=== PATIENT | male | born 1985 | race Caucasian/White ===

== ENCOUNTER → 2017-01-20 | Outpatient (CLI) | payer MEDICARE, OTHER ==
[2017-01-20 12:51] LABS: CH 32.8; HCT 43.7 % (39.0-53.0); HDW 2.78; HGB 14.5 gm/dL (13.0-17.5); MCH 32.1 pg (25.0-35.0); MCHC 33.1 g/dL (31.0-37.0); Mean Platelet Volume 8.4; RBC 4.51 m/uL (4.30-5.90); RDW 13.4 % (11.5-15.5); WBC 6.7 k/uL (3.8-10.6)
[2017-01-20 12:59] LABS: ALT 63 U/L (21-72); AST 45 U/L (17-59); Alkaline Phosphatase 77 U/L (38-126); Anion Gap 8 mmol/L; Blood Urea Nitrogen 10 mg/dL (9-20); Calcium 9.6 mg/dL (8.4-10.2); Carbon Dioxide 32 mmol/L (22-30); Chloride 102 mmol/L (98-107); Cholesterol 243 mg/dL (<200); Glucose 88 mg/dL (74-99); HDL Cholesterol 57 mg/dL (40-60); Non-African American GFR(MDRD) >60 (>60 ml/min/1.73 sqM); Potassium 4.5 mmol/L (3.5-5.1); Sodium 142 mmol/L (137-145); Triglycerides 126 mg/dL (<150)
== END ==
LOC: LABWHC1 12:16
PROVIDERS: ATTEND Internal Medicine Critical Care Medicine
DX: L50.9 Urticaria, unspecified (principal)
CPT/HCPCS: 36415; 80053; 80061; 82785; 85027

== ENCOUNTER → 2017-11-23 | Outpatient (CLI) | payer MEDICARE, OTHER ==
[2017-11-23 11:45] LABS: Basophils # (A) 0.1 k/uL (0-0.2); Basophils % (A) 1 %; Eosinophils # (A) 0.9 k/uL (0-0.7); Eosinophils % (A) 11 %; HCT 43.9 % (39.0-53.0); HGB 14.8 gm/dL (13.0-17.5); Lymphocytes # (A) 1.8 k/uL (1.0-4.8); Lymphocytes % (A) 22 %; MCH 31.8 pg (25.0-35.0); MCHC 33.8 g/dL (31.0-37.0); MCV 94.2 fL (80.0-100.0); Mean Platelet Volume 7.8; Monocytes # (A) 0.4 k/uL (0-1.0); Monocytes % (A) 5 %; Neutrophils # (A) 5.1 k/uL (1.3-7.7); Neutrophils % (A) 61 %; Platelet Count 232 k/uL (150-450); RBC 4.66 m/uL (4.30-5.90); RDW 13.5 % (11.5-15.5); WBC 8.3 k/uL (3.8-10.6)
[2017-11-23 12:10] LABS: ALT 77 U/L (21-72); AST 58 U/L (17-59); Albumin 4.6 g/dL (3.5-5.0); Alkaline Phosphatase 59 U/L (38-126); Anion Gap 10 mmol/L; Blood Urea Nitrogen 13 mg/dL (9-20); Calcium 9.8 mg/dL (8.4-10.2); Carbon Dioxide 30 mmol/L (22-30); Chloride 102 mmol/L (98-107); Glucose 101 mg/dL (74-99); Potassium 4.4 mmol/L (3.5-5.1); Sodium 142 mmol/L (137-145); Total Bilirubin 0.6 mg/dL (0.2-1.3); Total Protein 7.9 g/dL (6.3-8.2)
[2017-11-23 13:46] LABS: Erythrocyte Sedimentation Rate 13 mm/hr (0-15)
[2017-11-23 17:03] LABS: Alternaria alternata IgE 8.48 kU/L; Birch IgE <0.10 kU/L; Clam IgE <0.10 kU/L; Cockroach IgE 1.36 kU/L; Codfish IgE <0.10 kU/L; Dermato. farinae IgE 9.92 kU/L; Dog Dander IgE 6.57 kU/L; Egg White IgE 0.13 kU/L; Elm IgE <0.10 kU/L; Maple (Box Elder) IgE <0.10 kU/L; Oak IgE <0.10 kU/L; Peanut IgE 0.11 kU/L; Red Top (Bentgrass) IgE <0.10 kU/L; Scallop IgE <0.10 kU/L; Shrimp IgE <0.10 kU/L; Soybean IgE 0.28 kU/L; Walnut IgE (Food) <0.10 kU/L
== END | disposition home or self-care (01) ==
LOC: LABWHC1 11:11
PROVIDERS: ATTEND Internal Medicine Critical Care Medicine
DX: L50.8 Other urticaria (principal)
CPT/HCPCS: 36415; 80053; 82785; 85025; 85652; 86003; 99214

== ENCOUNTER → 2018-04-28 | Outpatient (CLI) | payer MEDICARE ==
[2018-04-28 12:24] LABS: Basophils # (A) 0.1 k/uL (0-0.2); Basophils % (A) 1 %; Eosinophils # (A) 0.9 k/uL (0-0.7); Eosinophils % (A) 11 %; HCT 39.9 % (39.0-53.0); HGB 13.1 gm/dL (13.0-17.5); Lymphocytes # (A) 1.5 k/uL (1.0-4.8); Lymphocytes % (A) 19 %; MCH 30.7 pg (25.0-35.0); MCHC 32.9 g/dL (31.0-37.0); MCV 93.2 fL (80.0-100.0); Mean Platelet Volume 7.5; Monocytes # (A) 0.4 k/uL (0-1.0); Monocytes % (A) 6 %; Neutrophils # (A) 4.7 k/uL (1.3-7.7); Neutrophils % (A) 61 %; Platelet Count 297 k/uL (150-450); RBC 4.29 m/uL (4.30-5.90); RDW 13.6 % (11.5-15.5); WBC 7.7 k/uL (3.8-10.6)
[2018-04-28 12:27] LABS: ALT 51 U/L (21-72); AST 39 U/L (17-59)
== END | disposition home or self-care (01) ==
LOC: LABWHC1 11:51
PROVIDERS: ATTEND Physician Assistant Medical
DX: L60.9 Nail disorder, unspecified (principal); L30.1 Dyshidrosis [pompholyx]
CPT/HCPCS: 36415; 84450; 84460; 85025; 87103

== ENCOUNTER → 2018-06-15 | Outpatient (CLI) | payer MEDICARE, OTHER ==
[2018-06-15 11:31] LABS: ALT 65 U/L (21-72); AST 44 U/L (17-59)
[2018-06-15 11:32] LABS: Basophils # (A) 0.1 k/uL (0-0.2); Basophils % (A) 1 %; Eosinophils # (A) 0.4 k/uL (0-0.7); Eosinophils % (A) 5 %; HCT 40.8 % (39.0-53.0); HGB 13.3 gm/dL (13.0-17.5); Lymphocytes # (A) 1.8 k/uL (1.0-4.8); Lymphocytes % (A) 23 %; MCH 30.9 pg (25.0-35.0); MCHC 32.7 g/dL (31.0-37.0); MCV 94.5 fL (80.0-100.0); Mean Platelet Volume 7.3; Monocytes # (A) 0.4 k/uL (0-1.0); Monocytes % (A) 5 %; Neutrophils # (A) 5.2 k/uL (1.3-7.7); Neutrophils % (A) 66 %; Platelet Count 246 k/uL (150-450); RBC 4.32 m/uL (4.30-5.90); WBC 7.8 k/uL (3.8-10.6)
== END | disposition home or self-care (01) ==
LOC: LABWHC1 11:46
PROVIDERS: ATTEND Physician Assistant Medical
DX: B35.1 Tinea unguium (principal)
CPT/HCPCS: 36415; 84450; 84460; 85025

== ENCOUNTER → 2018-06-15 | Outpatient (CLI) | payer MEDICARE, OTHER | LOC: LABWHC1 10:27 → EDSTATUS 10:53 | PROVIDERS: ATTEND Physician Assistant Medical | DX: Z53.9 Procedure and treatment not carried out, unspecified reason (principal) ==

== ENCOUNTER 2019-07-05 17:03 | Emergency (ER) | payer MEDICARE, OTHER ==
[2019-07-05] MEDS ORDERED: methylPREDNISolone SOD SUCCI 125 MG/2 ML VIAL IM ONE (19:21)
--- NOTE | 2019-07-05 19:30 | ED ---
Extremity Problem HPI - General Chief complaint: Extremity Problem,Nontraumatic Stated complaint: BLISTERS ON HANDS AND FEET Time Seen by Provider: 07/05/19 18:54 Source: family, RN notes reviewed, old records reviewed Mode of arrival: ambulatory Limitations: no limitations - History of Present Illness Initial comments: This is a 34-year-old male with history of both employed. He is normally treated by vest busheler at home. His office. He presents today with complaints of exacerbation over his hands. He reports he had a few blisters on his feet. They're concerned for secondary infection on his feet. Patient states that he's had a history of mental infection over his feet and he was on oral antifungals for many months. He stopped this a few months ago. Patient reports that his both employed seems to be exacerbated from being sweaty. He did have his hands and gloves couple days ago. Patient is here with his mother who is his legal guardian. - Related Data Home Medications Medication Instructions Recorded Confirmed Omalizumab [Xolair] 300 mg SQ Q28D 06/22/17 07/05/19 Previous Rx's Medication Instructions Recorded Clotrimazole Cream [Lotrimin Cream] 1 applic TOPICAL BID #60 gm 07/05/19 methylPREDNISolone Dose Pack 4 mg PO DIRECTED #21 package 07/05/19 [Medrol Dose Pack] Allergies Allergy/AdvReac Type Severity Reaction Status Date / Time cephalexin monohydrate Allergy Rash/Hives Verified 07/05/19 19:17 [From Keflex] broccoli AdvReac WAS Verified 07/05/19 19:17 POSITIVE TEST wheat AdvReac BLISTERING, Verified 07/05/19 19:17 POSITIVE ON ALLERGY TEST Review of Systems ROS Statement: Those systems with pertinent positive or pertinent negative responses have been documented in the HPI. ROS Other: All systems not noted in ROS Statement are negative. Past Medical History Past Medical History: Asthma, GERD/Reflux Additional Past Medical History / Comment(s): bullous pemphigoid, learning disabled-MENTAL CAPACITY OF TEENAGER. UNDERSTANDS MOST THINGS. 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 ECEZMA AROUND NECK. BLISTERS ON FEET 03/23/18. History of Any Multi-Drug Resistant Organisms: None Reported Date of last positivie culture/infection: 05/28/18 MDRO Source:: BACK Past Surgical History: Adenoidectomy Past Anesthesia/Blood Transfusion Reactions: Postoperative Nausea & Vomiting (PONV) Past Psychological History: No Psychological Hx Reported Smoking Status: Never smoker Past Alcohol Use History: None Reported Past Drug Use History: None Reported - Past Family History Mother History Unknown: Yes Family Medical History: No Reported History Additional Family Medical History / Comment(s): Hypotension and tachycardia General Exam - General Exam Comments Initial Comments: Pleasant 34-year-old male. No distress. Limitations: no limitations General appearance: alert, in no apparent distress Head exam: Present: atraumatic, normocephalic, normal inspection Eye exam: Present: normal appearance, PERRL, EOMI. Absent: scleral icterus, conjunctival injection, periorbital swelling ENT exam: Present: normal exam, mucous membranes moist Neck exam: Present: normal inspection. Absent: tenderness, meningismus, lymphadenopathy Respiratory exam: Present: normal lung sounds bilaterally. Absent: respiratory distress, wheezes, rales, rhonchi, stridor Cardiovascular Exam: Present: regular rate GI/Abdominal exam: Present: soft, normal bowel sounds. Absent: distended, tenderness, guarding, rebound, rigid Extremities exam: Present: normal inspection, full ROM, normal capillary refill. Absent: tenderness, pedal edema, joint swelling, calf tenderness Back exam: Present: normal inspection Neurological exam: Present: alert, oriented X3, CN II-XII intact Psychiatric exam: Present: normal affect, normal mood Skin exam: Present: warm, dry, intact, normal color, rash (Evidence of bullous- like lesions over his hands. One area has popped. Patient has evidence of popped sores over the bottom of his feet. There is evidence of scaling skin concern for possible topical fungal infection.) Course Vital Signs 07/05/19 17:43 Temperature 98.8 F Pulse Rate 77 Respiratory 16 Rate Blood Pressure 113/77 O2 Sat by Pulse 100 Oximetry Medical Decision Making - Medical Decision Making 34-year-old male presents with a history of ulcer medically. Acute exacerbation over his hands for the past few days after wearing gloves. Patient does have 3 significant bullous-like lesions. He has not had one as he does report some time. No steroids in the past month. Patient reports as having an appointment with his vest busheler on July 13. At this time Patient will be given IM Solu-Medrol, started on oral steroids. Discussed to use a topical antifungal medication and a lot of the Patient on oral antifungals until he follows up with his primary care doctor and vest busheler. Patient's mother and Patient are agreeable treatment plan will comply. Disposition Clinical Impression: Bullous pemphigoid, Fungal infection of foot Disposition: HOME SELF-CARE Condition: Good Instructions (If sedation given, give patient instructions): Dermatitis (ED) Additional Instructions: Patient has a follow up with her vest busheler. Return to the emergency department if any alarming signs or symptoms occur. Prescriptions: Clotrimazole Cream [Lotrimin Cream] 1 applic TOPICAL BID #60 gm methylPREDNISolone Dose Pack [Medrol Dose Pack] 4 mg PO DIRECTED #21 package Is patient prescribed a controlled substance at d/c from ED?: No Referrals: Oscar Barajas DO [Primary Care Provider] - 1-2 days Time of Disposition: 19:25
[2019-07-05 20:30] VITALS: BP 95/67; PULSE 61; RESP 18; TEMP 98
== END 2019-07-05 20:30 | disposition home or self-care (01) ==
LOC: EC 17:03
DX: B35.3 Tinea pedis (principal); L12.0 Bullous pemphigoid; J45.909 Unspecified asthma, uncomplicated; Z79.899 Other long term (current) drug therapy; Z88.1 Allergy status to other antibiotic agents; Z91.018 Allergy to other foods
CPT/HCPCS: 99283; 96372; J2930

== ENCOUNTER → 2020-10-10 | Outpatient (CLI) | payer MEDICARE, OTHER | END | disposition home or self-care (01) | LOC: LABWHC1 12:08 | PROVIDERS: ATTEND Family Medicine | DX: Z03.818 Encounter for observation for suspected exposure to other biological agents ruled out (principal) | CPT/HCPCS: U0003; C9803 ==